=== PATIENT | female | born 1975 ===

== ENCOUNTER 2025-02-05 07:00 | Day surgery (SDC) | payer OTHER ==
[2025-01-26 07:33] LABS: BASO % 0.5 % (0.1-1.2); EOS # 0.25 (0.04-0.54); EOS % 4.0 % (0.7-7.0); LYMPH # 1.71 (1.18-3.74); LYMPH % 27.3 % (19.3-53.1); MEAN PLATELET VOLUME 11.10 fl (9.4-12.4); MONO # 0.27 (0.24-0.82); MONO % 4.3 % (4.7-12.5); NEUT # 4.00 (1.56-6.13); NEUT % 63.7 % (34.0-71.1); RED CELL DISTRIBUTION WIDTH 13.0 % (11.6-14.4)
[2025-01-26 07:38] VITALS: BP 112/77
[2025-01-26 07:43] LABS: URINE APPEARANCE Clear; URINE BILIRRUBIN Negative (NEGATIVE); URINE BLOOD Negative; URINE COLOR Yellow; URINE GLUCOSE Negative (NEGATIVE); URINE KETONE Negative (NEGATIVE); URINE LEUKOCYTE Small; URINE NITRATE Negative; URINE PROTEIN Negative (NEGATIVE); URINE UROBILINOGEN 0.2 E.U./dl
[2025-01-26 07:47] LABS: URINE BACTERIA 818.4 uL (0.0-1933); URINE EPITHELIAL CELLS 18.7 uL (0.0-38.8); URINE RBC 5.4 uL (0.0-20.8); URINE WBC 21.5 uL (0.0-23.2)
[2025-01-26 08:06] LABS: URINE CAST 0.00 uL (0.0-1.40)
[2025-01-26 08:32] LABS: INR 0.98
[2025-01-26 08:47] LABS: ALT/SGPT 39.0 U/L (12-78); AST/SGOT 26.0 U/L (15-37); BILIRUBIN TOTAL 0.45 mg/dL (0.3-1.2); BUN CREA RATIO 15.0 (7.0-25.0); CREATININE SERUM 0.92 mg/dL (0.55-1.02); GFR 65.15; GLOBULINA 3.2 G/DL (2.4-3.5); GLUCOSE FASTING 83.0 mg/dL (65-100); OSMOLALITY SERUM 283.0 MOSM/KG (275-295)
[~2025-02-05] VITALS: Ht 149.9 cm; Wt 98.9 kg
[2025-02-05] MEDS ORDERED: POVIDONE-IODINE 118 ML BOTT TOP ONE (08:11)
[2025-02-05] MEDS ORDERED: KETOROLAC TROMETHAMINE 30 MG VIAL IV ONE (11:00)
[2025-02-05] MEDS ORDERED: ONDANSETRON HCL 2 MG/ML VIAL IV ONE (11:00)
[2025-02-05] MEDS ORDERED: KETOROLAC TROMETHAMINE 30 MG VIAL ONE (11:58)
== END 2025-02-05 13:15 | disposition home or self-care (01) ==
LOC: CIR.AMB 07:00
PROVIDERS: ATTEND Obstetrics & Gynecology
DX: N95.0 Postmenopausal bleeding (principal); Z91.013 Allergy to seafood; Z88.8 Allergy status to other drugs, medicaments and biological substances